=== PATIENT | female | born 1955 | race Caucasian/White ===

== ENCOUNTER 2016-11-03 09:29 | Inpatient (IN) | payer BC ==
[~2016-11-03] VITALS: Ht 162.6 cm; Wt 65.0 kg
[2016-11-04] VITALS (13 sets, daily range): BP systolic 96–134; BP diastolic 46–72; PULSE 68–97; TEMP 97.8–98.2
[2016-11-04] MEDS ORDERED: INSULIN HUMA100 U/ML SQ (08:37)
[2016-11-04] MEDS ORDERED: UNIRETIC 25 MG-1 TAB PO (08:38)
[2016-11-04] MEDS ORDERED: MULTI VITAMINS1 TAB PO (08:39)
[2016-11-04] MEDS ORDERED: SYNTHROID0.125 MG/T PO (08:39)
[2016-11-04] MEDS ORDERED: MAG-TAB SR84 MG PO (08:39)
[2016-11-04] MEDS ORDERED: CRANBERRY1 POW (08:41)
[2016-11-04] MEDS ORDERED: B-121000 MCG PO (08:41)
[2016-11-04] MEDS ORDERED: FOLIC ACID 40400 MCG PO (08:47)
[2016-11-04] MEDS ORDERED: FLORAJEN A20 Billion (08:48)
[2016-11-04] MEDS ORDERED: OMEGA-3 1000 MG1 CAP PO (08:48)
[2016-11-04] MEDS ORDERED: CALCIUM CARB500 MG PO (08:49)
[2016-11-04] MEDS ORDERED: IMMUNE PO (08:50)
[2016-11-04] MEDS ORDERED: PROLAMINE IODINE PO (08:50)
[2016-11-04 19:05] LABS: HEMATOCRIT 39.9 % (37.0-47.0); HEMOGLOBIN 13.9 g/dl (12.5-16.0)
[2016-11-05] VITALS (7 sets, daily range): BP systolic 104–123; BP diastolic 46–70; PULSE 58–71; TEMP 97.9–98.3
[2016-11-05 08:01] LABS: HEMOGLOBIN 12.5 g/dl (12.5-16.0)
[2016-11-05 08:17] LABS: CALCIUM 8.8 mg/dL (8.4-10.2); CREATININE, serum 0.7 mg/dL (0.52-1.25); POTASSIUM 3.6 mmol/L (3.4-5.0)
[2016-11-05 08:30] LABS: HEMATOCRIT 36.8 % (37.0-47.0)
[2016-11-06 05:19] VITALS: BP 104/60; PULSE 83; TEMP 98.2
[2016-11-06 08:38] LABS: HEMOGLOBIN 12.3 g/dl (12.5-16.0)
[2016-11-06 08:41] LABS: HEMATOCRIT 36.7 % (37.0-47.0)
[2016-11-06 09:33] VITALS: BP 113/65; PULSE 69; TEMP 97.6
[2016-11-06 14:06] VITALS: BP 124/66; PULSE 69; TEMP 97.7
[2016-11-06] MEDS ORDERED: NORCO 325 MG-51 TAB PO (15:22)
[2016-11-06 17:48] VITALS: BP 135/72; PULSE 70; TEMP 98.9
== END 2016-11-06 19:15 | disposition home or self-care (01) | DRG 331 ==
LOC: INPTSU 11-04 06:41 → SURG 11-04 06:41
PROVIDERS: Surgery
PROC: 0DTG4ZZ Resection of Left Large Intestine, Percutaneous Endoscopic Approach (ICD-10-PCS; principal; 2016-11-04 09:00)
DX: K57.32 Diverticulitis of large intestine without perforation or abscess without bleeding (principal); I10 Essential (primary) hypertension; E03.9 Hypothyroidism, unspecified; E10.9 Type 1 diabetes mellitus without complications; Z96.41 Presence of insulin pump (external) (internal); Z86.718 Personal history of other venous thrombosis and embolism
CPT/HCPCS: 99222; 99232-AI; A4315; A9284; J0694; J1100; J1170; J1650; J1885; J1956; J2370; J2405; J2550; J2704; J2710; J3010; J7120

== ENCOUNTER → 2016-11-14 | Outpatient (CLI) | payer BC ==
[~2016-11-14] MED LIST: B-121000 MCG PO; CALCIUM CARB500 MG PO; CRANBERRY1 POW; FLORAJEN A20 Billion; FOLIC ACID 40400 MCG PO; IMMUNE PO; INSULIN HUMA100 U/ML SQ; MAG-TAB SR84 MG PO; MULTI VITAMINS1 TAB PO; NORCO 325 MG-51 TAB PO; OMEGA-3 1000 MG1 CAP PO; PROLAMINE IODINE PO; SYNTHROID0.125 MG/T PO; UNIRETIC 25 MG-1 TAB PO
== END ==
LOC: COL.RAD 14:30
DX: K57.32 Diverticulitis of large intestine without perforation or abscess without bleeding (principal); G89.18 Other acute postprocedural pain; Z98.890 Other specified postprocedural states
CPT/HCPCS: Q9967